=== PATIENT | male | born 1950 ===

== ENCOUNTER 2021-08-05 09:16 | Emergency (ER) | payer OTHER, MEDICAID, SELFPAY ==
[2021-08-05] VITALS (7 sets, daily range): BP systolic 102–124; BP diastolic 68–79; PULSE 67–75; RESP 13–18; TEMP 36.4; O2SAT 95–97
--- NOTE | ~2021-08-05 | CT_ITS ---
EXAMINATION: CT brain wo con EXAM DATE: 08/05/2021 09:49 INDICATION: Transient alteration in mental status . TECHNIQUE: Spiral CT of the head was performed without contrast. Axial, coronal and sagittal images were reviewed. The dose-length product (DLP) for this examination was 605.33 mGy-cm. The exposure w as tailored according to patient size, and iterative reconstruction (ASIR) was used as additional dos e reduction technique. There is no prior study for comparison. FINDINGS: There is no acute intraparenchymal hemorrhage. No evidence of intraparenchymal brain mass lesion. No evidence of acute infarction. There is mild microangiopathy and moderate cerebral atrophy . There is no mass effect or midline shift. The ventricles are normal in size. There are no extra-a xial collections. There are no acute calvarial fractures. The orbits are unremarkable. Soft tissue is unremarkable. The visualized sinuses and mastoid air cells are well aerated. IMPRESSION: 1. No acute intracranial findings. 2. Microangiopathy and atrophy. Reviewed, dictated and finalized at location A.
--- NOTE | 2021-08-05 09:31 | ECG_ITS ---
Measurements Intervals [place] Rate: 66 P: 80 DC: 193 QRS: -68 QRSD: 150 T: 59 QT: 440 QTc: 463 Interpretive Statements SINUS RHYTHM MARKED LEFT AXIS DEVIATION [QRS AXIS < -30] RIGHT BUNDLE BRANCH BLOCK [120+ ms QRS DURATION, UPRIGHT V1, 40+ ms S IN I/aVL/V4/V5/V6] NO PREVIOUS ECG AVAILABLE FOR COMPARISON Electronically Signed On 08-06-2021 6:52:02 CDT by Melany Azevedo M.D.
--- NOTE | 2021-08-05 09:35 | ED.AMS ---
HPI - Altered Mental Status General Chief Complaint: Altered Mental Status Stated Complaint: altered LOC with hypotension Time Seen by Provider: 08/05/21 09:28 Source: patient, EMS, RN notes reviewed and old records reviewed History of Present Illness HPI narrative: Patient presents with unresponsiveness. Patient is at a rehab facility for recent right lower extremity amputation due to peripheral arterial disease. This morning he got his morning medications shortly after became unresponsive and was found to be hypotensive systolic blood pressures of 60s. EMS was called and transported the patient to the ER. At their arrival blood pressure was improving with systolics in the 70s. Patient continued to be only responsive to noxious stimuli. EMS placed an IO and started IV fluid shortly after IO placement patient became alert and was answering questions. Patient reports he got his morning medications and then shortly after started feeling dizzy. Patient reports he is feeling improved now he denies any acute complaints. Denies any dizziness chest pain, shortness of breath, nausea, vomiting. Related Data Home Medications Medication Instructions Recorded Confirmed aspirin 81 mg PO DAILY 08/04/21 08/04/21 baclofen 10 mg PO Q8H PRN 08/04/21 08/04/21 clonazepam 1 mg PO BID 08/04/21 08/04/21 cyanocobalamin (vitamin B-12) 500 mcg PO DAILY 08/04/21 08/04/21 dextroamphetamine-amphetamine 10 mg PO DAILY 08/04/21 08/04/21 [Adderall] hydrochlorothiazide 25 mg PO DAILY 08/04/21 08/04/21 ipratropium-albuterol 3 ml INHALATION QID 08/04/21 08/04/21 ipratropium-albuterol [Combivent] 2 spray INHALATION Q6H PRN 08/04/21 08/04/21 losartan 100 mg PO DAILY 08/04/21 08/04/21 metoprolol tartrate 25 mg PO BID 08/04/21 08/04/21 mirtazapine 45 mg PO HS 08/04/21 08/04/21 nicotine 1 patch TRANSDERMAL DAILY 08/04/21 08/04/21 omeprazole 40 mg PO DAILY 08/04/21 08/04/21 rivaroxaban [Xarelto] 20 mg PO QPM 08/04/21 08/04/21 sertraline 100 mg PO DAILY 08/04/21 08/04/21 simvastatin 40 mg PO DAILY 08/04/21 08/04/21 Allergies Allergy/AdvReac Type Severity Reaction Status Date / Time lisinopril Allergy Unknown Verified 07/28/21 17:21 methadone Allergy Confusion Verified 07/28/21 17:23 Review of Systems Review of Systems: CONSTITUTIONAL: Denies fever, chills, or sweats. EYES: Denies visual changes, redness, or discharge. ENT: Denies rhinorrhea, congestion, sore throat, or otalgia. CARDIOVASCULAR: Denies chest pain, palpitations, or edema. RESPIRATORY: Denies cough or dyspnea. GASTROINTESTINAL: Denies abdominal pain, nausea, vomiting, or diarrhea. GENITOURINARY: Denies dysuria or hematuria. SKIN: Denies rash or itching. MUSCULOSKELETAL: Denies back pain, joint pain, or myalgia. NEUROLOGIC: Denies headache, numbness, dizziness, or weakness. PSYCHIATRIC: Denies anxiety or depression. All systems reviewed & are unremarkable except as noted in HPI and below PMFSH Past Medical History Medical History (Updated 08/05/21 @ 11:02 by Raymon Moe MD) ADD (attention deficit disorder) Atrial fibrillation Below-knee amputation of right lower extremity CHF (congestive heart failure) COPD (chronic obstructive pulmonary disease) Diastolic congestive heart failure GERD (gastroesophageal reflux disease) HTN (hypertension) Hyperlipidemia Phantom pain after amputation of lower extremity PVD (peripheral vascular disease) Social History Social History Social History: patient lives in assisted living facility. Prior to this patient was completely independent with ADLs transfers and gait Smoking status: Current every day smoker Tobacco type: cigarettes Exam Narrative: GENERAL: Well-appearing, well-nourished, and in no acute distress. HEAD: Normocephalic, atraumatic. EYES: PERRLA and EOMI. ENT: Nares clear, no rhinorrhea or epistaxis. Mucous membranes moist. NECK: Supple. No masses. No JVD CHEST: Franca
--- NOTE | 2021-08-05 09:37 | PC.NURSE ---
pt to CT scan at this time.
[2021-08-05 09:43] LABS: Basophils Percent Auto 0.3 % (0.2-1.2); Eosinophils Absolute Auto 0.2 K/mm3 (0-0.3); Eosinophils Percent Auto 2.4 % (0-4.4); Hematocrit 37.3 % (42.0-52.0); Hemoglobin 12.4 g/dL (14.0-18.0); Immature Granulocyte Absolute 0.04 K/mm3 (0.00-0.031); Immature Granulocyte Percent A 0.4 % (0-0.5); Lymphocytes Absolute Auto 2.28 K/mm3 (0.9-3.2); Lymphocytes Percent Auto 23.1 % (18.3-44.2); Mean Corpuscular HGB Conc 33.2 g/dl (32-36); Mean Corpuscular Hemoglobin 30.5 pg (26-34); Mean Corpuscular Volume 91.6 fl (80-100); Mean Platelet Volume 9.7 fl (7.4-10.4); Monocytes Absolute Auto 0.6 K/mm3 (0.1-0.6); Monocytes Percent Auto 6.1 % (2.6-8.5); Neutrophils Absolute Auto 6.7 K/mm3 (1.3-6.7); Neutrophils Percent Auto 67.7 % (45.5-73.1); Platelet Count Result 319 k/mm3 (150-375); Red Blood Count 4.07 M/mm3 (4.6-6.20); Red Cell Distribution Width 14.2 % (11.5-14.5); White Blood Count 9.9 K/mm3 (4.5-10.0)
[2021-08-05] MEDS: SODIUM CHLORIDE 0.9% IV 500 ML 999 ML IV CONT (09:52)
[2021-08-05 09:53] LABS: Alanine Aminotransferase 22 U/L (4-50); Albumin Level 4.3 g/dL (3.5-5.1); Alkaline Phosphatase 117 U/L (38-126); Anion Gap 8 mmol/L (8-16); Aspartate Amino Transferase 47 U/L (17-59); Bilirubin,Total 0.7 mg/dL (0.2-1.3); Blood Urea Nitrogen 54 mg/dL (9-20); Carbon Dioxide 35 mmol/L (22-30); Chloride 96 mmol/L (98-107); Estimated CRCL calculation 44 ml/min; Estimated Glomerular Filt Rate 50; Glucose 102 mg/dL (65-110); Potassium 3.8 mmol/L (3.4-5.0); Sodium 139 mmol/L (137-145)
[2021-08-05 09:59] LABS: Ammonia < 9 umol/L (9-30)
[2021-08-05 10:28] LABS: Add Urine Microscopic? YES; Appearance Urine Clear (Clear); Bilirubin Urine Negative (Negative); Blood Urine 1+ (Negative); Color Urine Yellow (Yellow); Glucose Urine UA Negative (Negative); Ketones Urine Negative (Negative); Leukocyte Esterase Ur Negative LEU/UL (Negative); Mucus Urine Rare /lpf; Nitrate Urine Negative (Negative); Protein Urine Negative (Negative); RBC Urine 0-2 /hpf (0-2); Squamous Epithelial Cell Urine Rare /hpf (Few); Urobilinogen Urine Negative mg/dL (<2.0); WBC Urine 0-3 /hpf
[2021-08-05 10:37] LABS: Amphetamine Screen Urine Negative (Negative); Barbiturate Screen Urine Negative (Negative); Benzodiazepines Screen Urine Negative (Negative); Cannabinoid Screen Urine Negative (Negative); Cocaine Screen Urine Negative (Negative); Methadone Screen Urine Negative (Negative); Opiate Screen Urine Negative (Negative); Phencyclidine Screen Urine Negative (Negative)
--- NOTE | 2021-08-05 13:15 | PC.NURSE ---
[facility] [employer] called for ETA update on an ambulance for pt back to [facility]. They state they are stuck in traffic, but they are on their way.
== END 2021-08-05 13:50 ==
PROVIDERS: Emergency Provider Emergency Medicine; PCP Family Medicine Sports Medicine
DX: N17.9 Acute kidney failure, unspecified (principal); R40.4 Transient alteration of awareness; Z89.511 Acquired absence of right leg below knee; I48.91 Unspecified atrial fibrillation; I50.9 Heart failure, unspecified; J44.9 Chronic obstructive pulmonary disease, unspecified; I50.30 Unspecified diastolic (congestive) heart failure; I11.0 Hypertensive heart disease with heart failure; K21.9 Gastro-esophageal reflux disease without esophagitis; E78.5 Hyperlipidemia, unspecified; I73.9 Peripheral vascular disease, unspecified; F98.8 Other specified behavioral and emotional disorders with onset usually occurring in childhood and adolescence; Z79.01 Long term (current) use of anticoagulants; Z79.82 Long term (current) use of aspirin; Z79.899 Other long term (current) drug therapy; F17.210 Nicotine dependence, cigarettes, uncomplicated
CPT/HCPCS: 36415; 51701; 70450; 80053; 80307; 81001; 82140; 85025; 93005; 96360; 99284; J7040